=== PATIENT | male | born 1980 | race Caucasian/White ===

== ENCOUNTER 2019-02-17 09:06 | Day surgery (SDC) | payer OTHER ==
[~2019-02-17] VITALS: Ht 182.9 cm; Wt 128.9 kg
[~2019-02-17 09:06] MED LIST: BUPIVACAINE/PF 0.5% ONE; EPINEPHRINE 1 MG/ML, 1ML ONE
[2019-02-17] MEDS ORDERED: LACTATED RINGERS 1,000 ML IV SCH ×2 (09:35→11:52)
[2019-02-17 09:54] VITALS: BP 131/83
[2019-02-17] MEDS ORDERED: NONE PER PT (09:54)
[2019-02-17] MEDS ORDERED: OXYcodone 5 MG/5 ML ORAL.SOL UDC PO PRN (10:30)
[2019-02-17] MEDS ORDERED: PROMETHAZINE 25 MG/ML, 1ML IV PRN (10:30)
[2019-02-17] MEDS ORDERED: DIPHENHYDRAMINE 50 MG/ML, 1ML IVPush PRN (10:30)
[2019-02-17] MEDS ORDERED: ACETAMINOPHEN 325 MG TABLET PO PRN (10:30)
[2019-02-17] MEDS ORDERED: ONDANSETRON ODT 8 MG PO PRN (10:30)
[2019-02-17] MEDS ORDERED: EPHEDRINE 50 MG/ML, 1ML IVPush PRN (10:30)
[2019-02-17] MEDS ORDERED: METOPROLOL 1 MG/ML, 5ML IV PRN (10:30)
[2019-02-17] MEDS ORDERED: ONDANSETRON 2MG/ML, 2ML IV PRN (10:30)
[2019-02-17] MEDS ORDERED: DIAZEPAM 5 MG/ML, 2ML IVPush PRN (10:30)
[2019-02-17] MEDS ORDERED: hydrALAzine 20 MG/ML, 1ML IV PRN (10:30)
[2019-02-17] MEDS ORDERED: MIDAZOLAM 1 MG/ML, 2ML IV PRN (10:30)
[2019-02-17] MEDS ORDERED: MEPERIDINE/PF 25MG/0.5ML IVPush PRN (10:30)
[2019-02-17] MEDS ORDERED: MORPHINE SULFATE 4 MG/ML, 1ML IVPush PRN (10:30)
[2019-02-17] MEDS ORDERED: EPHEDRINE 50 MG/ML, 1ML IM PRN (10:30)
[2019-02-17] MEDS ORDERED: PROPOFOL 50 ML ONE (10:35)
[2019-02-17] MEDS ORDERED: MIDAZOLAM 1 MG/ML, 2ML ONE (10:35)
[2019-02-17] MEDS ORDERED: FENTANYL PF 250 MCG/5ML ONE (10:35)
[2019-02-17] MEDS ORDERED: SUCCINYLCHOLINE 20 MG/ML, 10ML ONE (10:54)
[2019-02-17] MEDS ORDERED: ONDANSETRON 2MG/ML, 2ML ONE (10:54)
[2019-02-17] MEDS ORDERED: DEXAMETHASONE 4 MG/ML, 1ML ONE (10:54)
[2019-02-17] MEDS ORDERED: ROCURONIUM 10MG/ML,5ML ONE (10:54)
[2019-02-17] MEDS ORDERED: KETOROLAC 30 MG/1 ML ONE (10:54)
[2019-02-17] MEDS ORDERED: CEFAZOLIN 1,000 MG ONE (10:57)
[2019-02-17] MEDS ORDERED: METOPROLOL 1 MG/ML, 5ML ONE (11:37)
[2019-02-17] MEDS ORDERED: HYDROcodone/APAP 5/325 TABLET PO PRN (12:00)
[2019-02-17] MEDS ORDERED: ONDANSETRON 2MG/ML, 2ML IVPush PRN (12:00)
[2019-02-17] MEDS ORDERED: morphine SULFATE 10 MG/ML, 1ML IVPush PRN (12:00)
[2019-02-17] MEDS ORDERED: ACETAMINOPHEN 650 MG/20.3 ML UDC ONE (12:14)
[2019-02-17] MEDS ORDERED: FENTANYL PF 100 MCG/2ML ONE (12:15)
[2019-02-17] MEDS ORDERED: OXYcodone 5 MG/5 ML ORAL.SOL UDC ONE (12:15)
[2019-02-17] MEDS: FENTANYL PF 100 MCG/2ML IV PRN ×2 (12:20→12:28)
== END 2019-02-17 14:45 | disposition home or self-care (01) ==
LOC: OUT 09:06 → ORIP 11:52 → UNDOADMOB 11:52
PROVIDERS: ATTEND Thoracic Surgery (Cardiothoracic Vascular Surgery)
DX: K40.90 Unilateral inguinal hernia, without obstruction or gangrene, not specified as recurrent (principal); I10 Essential (primary) hypertension; Z79.1 Long term (current) use of non-steroidal anti-inflammatories (NSAID); E66.01 Morbid (severe) obesity due to excess calories; Z98.890 Other specified postprocedural states; Z82.3 Family history of stroke; Z82.49 Family history of ischemic heart disease and other diseases of the circulatory system; Z72.89 Other problems related to lifestyle; Z68.39 Body mass index [BMI] 39.0-39.9, adult
CPT/HCPCS: 49650; C1727; C1781; J0171; J0330; J0690; J1100; J1885; J2250; J2405; J2704; J3010; J7120